=== PATIENT | male | born 1995 | race Two or more races ===

== ENCOUNTER 2023-07-22 21:37 | Emergency (ER) | payer BC, SELFPAY ==
[2023-07-22 21:42] VITALS: BP 138/88; PULSE 102; RESP 18; TEMP 37.7; O2SAT 98; BMI 30.8
--- NOTE | 2023-07-22 22:08 | ED.GENADUL1 ---
HPI - General Adult General Chief complaint: Abdominal Pain Stated complaint: Abdominal Pain Time Seen by Provider: 07/22/23 21:46 Source: patient Mode of arrival: walk-in History of Present Illness HPI narrative: this morning around 1030am the patient developed sharp stabbing pain along the LLQ that he rated 10/10. He said that he woke normally hours before and did not have any pain, nausea or other complaints. He said that he ate a peanut butter smoothie before going to work. While at work he developed the pain - some radiation into the left flank, currently rated 9/10. He denied any urinary symptoms. He admitted to frequent BMs with diarrhea. No fever or chills. he vomited. Despite the 10/10 pain he did not take anything OTC for the pain. Not clear why he waited almost 12 hours with constant severe pain to come to the ED. as I was leaving the exam room, he also complained to me that he had experienced a slight sore throat that began when he woke this morning. Related Data Previous Rx's Medication Instructions Recorded nabumetone 750 mg tablet 750 mg PO BID PRN pain #14 tabs 07/22/23 ondansetron 4 mg disintegrating 4 mg PO Q6H PRN nausea and 07/22/23 tablet vomiting #20 tabs Allergies Allergy/AdvReac Type Severity Reaction Status Date / Time No Known Drug Allergies Allergy Verified 07/22/23 21:42 Exam Narrative Exam Narrative: Nurses notes and vital signs reviewed and patient is not hypoxic. afebrile General: Well-appearing and in no apparent distress. Skin: Warm, dry, no pallor noted. No rash to abdomen or flank. Head: Normocephalic, atraumatic. Neck: Supple, non-tender. Eye: Pupils are equal, round and EOMI. No scleral icterus. Ears, Nose, Mouth, and Throat: Oral mucosa is moist, no posterior oropharynx erythema or exudate, uvula is mid-line Cardiovascular: Regular Rate and Rhythm without murmur, gallop or rub. Respiratory: No accessory muscle use or respiratory distress. Lungs are clear to auscultation, no wheezing, rales or rhonchi Back: No CVA tenderness Musculoskeletal: normal ROM GI: Abdomen is soft, non-distended. Normal bowel sounds. No masses appreciated. focal left lower quadrant tenderness to palpation. No rebound, guarding, or rigidity noted. Neurological: A&O x4. No cranial nerve dysfunction observed. No truncal ataxia. Moves all extremities. Sensation intact. Psychiatric: Cooperative and interactive. Normal mood and affect. Constitutional Vital Signs, click to edit/add: Last Vital Signs Temp 100 F 07/22/23 21:42 Pulse 102 H 07/22/23 21:42 Resp 18 07/22/23 21:42 BP 138/88 07/22/23 21:42 Pulse Ox 98 07/22/23 21:42 O2 Del Method Room Air 07/22/23 21:42 Course Vital Signs Vital signs: Vital Signs Temperature 100 F 07/22/23 21:42 Pulse Rate 102 H 07/22/23 21:42 Respiratory Rate 18 07/22/23 21:42 Blood Pressure 138/88 07/22/23 21:42 Pulse Oximetry 98 07/22/23 21:42 Oxygen Delivery Method Room Air 07/22/23 21:42 Temperature 100 F 07/22/23 21:42 Pulse Rate 102 H 07/22/23 21:42 Respiratory Rate 18 07/22/23 21:42 Blood Pressure 138/88 07/22/23 21:42 Pulse Oximetry 98 07/22/23 21:42 Oxygen Delivery Method Room Air 07/22/23 21:42 Medical Decision Making MDM Narrative Medical decision making narrative: peripheral IV established and blood drawn and sent for testing. urine was ordered to be obtained and sent for testing. Strep screen also sent. Patient was ordered to receive normal saline IV fluid, IV Toradol and IV Zofran. He was sent for CT scanning of the abdomen pelvis without contrast. WBC 12k, borderline left shift. CMP and lactate negative. Strep negative. UA with trace blood and trace protein and no sign of infection. CT = bilateral nonobstructing nephroliths without ureteral stones. Diverticulosis without diverticulitis - but study was done without contrast. WBC elevation could be reactive. CT did not reveal cause of the patient's symptoms On recheck his pain was markedly reduced and his nausea almost gone. He was informed of results, given reassurance and discharged home with prescriptions for Zofran and Relafen. He was instructed to maintain clear liquid diet until nausea subsides and advance diet as tolerated. ED return if he worsens. Lab Data Lab results reviewed: Yes I reviewed the patient's lab results Labs: Lab Results 07/22/23 Range/Units 22:15 WBC 12.1 H (4.0-11.0) 10^3/uL RBC 5.43 (4.70-6.10) 10^6/uL Hgb 15.6 (14.0-18.0) g/dL Hct 44.0 (42.0-54.0) % MCV 81.0 (80.0-94.0) fL MCH 28.7 (25.9-34.0) pg MCHC 35.5 H (29.9-35.2) g/dL RDW 11.7 (11.0-15.0) % Plt Count 187 (150-450) 10^3/uL MPV 10.0 (9.5-13.5) fL Neut % (Auto) 74.8 (43.0-75.0) % Lymph % (Auto) 12.3 L (20.5-60.0) % Brantley % (Auto) 12.2 H (1.7-12.0) % Eos % (Auto) 0.1 L (0.9-7.0) % Baso % (Auto) 0.2 (0.2-2.0) % Neut # (Auto) 9.1 H (1.4-6.5) 10^3/uL Lymph # (Auto) 1.5 (1.2-3.8) 10^3/uL Brantley # (Auto) 1.5 H (0.3-0.8) 10^3/uL Eos # (Auto) 0.0 (0.0-0.7) 10^3/uL Baso # (Auto) 0.0 (0.0-0.1) 10^3/uL Abs Immat Gran (auto) 0.05 H (0.00-0.03) 10^3/uL Imm/Tot Granulo (auto) 0.4 (0.0-0.5) % Sodium 137 (136-145) mmol/L Potassium 3.6 (3.5-5.1) mmol/L Chloride 100 (98-107) mmol/L Carbon Dioxide 27.9 (21.0-32.0) mmol/L Anion Gap 12.7 BUN 8.0 (7.0-18.0) mg/dL Creatinine 1.10 (0.70-1.30) mg/dL Est GFR ( Amer) >60 (>=60) Est GFR (Non-Af Amer) >60 (>=60) BUN/Creatinine Ratio 7.3 Glucose 99 (74-106) mg/dL Lactate 1.0 (0.4-2.0) mmol/L Calcium 9.1 (8.5-10.1) mg/dL Total Bilirubin 0.8 (0.2-1.0) mg/dL AST 19 (15-37) U/L ALT 30 (16-63) U/L Alkaline Phosphatase 60 (46-116) U/L Total Protein 7.8 (6.4-8.2) g/dL Albumin 4.3 (3.4-5.0) g/dL Globulin 3.5 g/dL Albumin/Globulin Ratio 1.2 Streptococcus Screen Negative Imaging Data CT scan - abdomen: Attestation: I have reviewed the pertinent imaging results. Radiologist's impression: Patient Name: MIGUEL ÁNGEL HARRISON MRN: [facility]:[id number] date: 1995 Sex: M Assigned Patient Location: ER Current Patient Location: ER Accession/Order Number: [id number] Exam Date: 07/22/2023 22:34 Report Date: 07/22/2023 22:55 At the request of: MARIETTA GILMORE Procedure: CT abdomen pelvis wo con EXAMINATION: CT Abdomen/Pelvis without contrast REPORT DATE: 07/22/2023 10:49 PM EDT INDICATION: Left lower quadrant abdominal pain COMPARISON(S): None. TECHNIQUE: Unenhanced axial CT through the abdomen and pelvis was performed. Coronal and sagittal reformats were provided. Individualized dose optimization techniques were used for this CT. FINDINGS: SUPPORT DEVICES: None. LOWER CHEST Normal. ABDOMEN/PELVIS Liver: Normal. Gallbladder/biliary: Normal gallbladder. No biliary ductal dilation. Pancreas: Normal. Spleen: Normal. Adrenal glands: Normal. Kidneys and ureters: Bilateral nonobstructing nephrolithiasis of the kidneys with largest stone seen on the left measuring 2 mm. The ureters are within normal limits. Bladder: Normal. Reproductive organs: Normal for age. Vessels: Normal. Stomach/bowel: Normal appearance of the gastroesophageal junction. The small bowel is normal caliber. The appendix is normal. Several colonic diverticula are noted without evidence of acute diverticulitis. Lymph nodes: No lymphadenopathy. Peritoneum: No intraperitoneal free air. No intraperitoneal free fluid. MUSCULOSKELETAL: Abdominal wall: Fat-containing periumbilical hernia with a fascial defect measuring 2.1 cm. Bones: No acute osseous abnormality. IMPRESSION: Bilateral nonobstructing nephrolithiasis. No obstructing stones are identified. Colonic diverticulosis without evidence of acute diverticulitis. Electronically authenticated by: OLLIE FERRER Date: 07/22/2023 22:55 Discharge Plan Discharge Chief Complaint: Abdominal Pain Clinical Impression: Nausea & vomiting, Abdominal pain Patient Disposition: Home, Self-Care Time of Disposition Decision: 23:12 Prescriptions / Home Meds: New ondansetron 4 mg tablet,disintegrating 4 mg PO Q6H PRN (Reason: nausea and vomiting) Qty: 20 0RF nabumetone 750 mg tablet 750 mg PO BID PRN (Reason: pain) Qty: 14 0RF Instructions: Acute Nausea and Vomiting (ED), Acute Abdominal Pain (ED) Stand Alone Forms: Portal Instructions Referrals: Physician,Non-Staff, MD [Primary Care Provider] - 1 week
[2023-07-22] MEDS: 0.9 % SODIUM CHLORIDE 1,000 ML 999 ML IV (22:20)
[2023-07-22] MEDS: KETOROLAC TROMETHAMINE 30 MG/ML VIAL IVP (22:20)
[2023-07-22] MEDS: ONDANSETRON PF 4 MG/2 ML VIAL IV (22:21)
[2023-07-22 22:26] LABS: Basophils Percent Auto 0.2 % (0.2-2.0); Eosinophils Percent Auto 0.1 % (0.9-7.0); Hemoglobin 15.6 g/dL (14.0-18.0); Immature Granulocytes Abs Auto 0.05 10^3/uL (0.00-0.03); Immature Granulocytes Pct Auto 0.4 % (0.0-0.5); Lymphocytes Absolute Auto 1.5 10^3/uL (1.2-3.8); Lymphocytes Percent Auto 12.3 % (20.5-60.0); Mean Corpuscular HGB Conc 35.5 g/dL (29.9-35.2); Mean Corpuscular Hemoglobin 28.7 pg (25.9-34.0); Monocytes Absolute Auto 1.5 10^3/uL (0.3-0.8); Monocytes Percent Auto 12.2 % (1.7-12.0); Neutrophils Absolute Auto 9.1 10^3/uL (1.4-6.5); Neutrophils Percent Auto 74.8 % (43.0-75.0); Platelet Count 187 10^3/uL (150-450); Red Blood Count 5.43 10^6/uL (4.70-6.10); Red Cell Distribution Width 11.7 % (11.0-15.0); White Blood Count 12.1 10^3/uL (4.0-11.0)
[2023-07-22 22:27] LABS: Bilirubin Urine NEGATIVE (NEGATIVE); Blood Urine TRACE-I (NEGATIVE); Clarity Urine CLEAR (CLEAR); Color Urine LT. YELLOW (YELLOW); Glucose Urine UA NEGATIVE (NEGATIVE); Ketones Urine NEGATIVE (NEGATIVE); Leukocyte Esterase Urine NEGATIVE (NEGATIVE); Nitrite Urine NEGATIVE (NEGATIVE); Protein Urine TRACE mg/dL (NEG/TRACE); Specific Gravity Urine 1.015 (1.005-1.025)
[2023-07-22 22:36] LABS: Internal Control Within Normal Limits; Strep A Antigen Screen Negative
[2023-07-22 22:40] LABS: Alanine Aminotransferase 30 U/L (16-63); Albumin Globulin Ratio 1.2; Albumin Level 4.3 g/dL (3.4-5.0); Alkaline Phosphatase 60 U/L (46-116); Anion Gap 12.7; Aspartate Amino Transferase 19 U/L (15-37); BUN Creatinine Ratio 7.3; Bilirubin Total 0.8 mg/dL (0.2-1.0); Calcium 9.1 mg/dL (8.5-10.1); Carbon Dioxide 27.9 mmol/L (21.0-32.0); Chloride 100 mmol/L (98-107); Estimated GFR (African America >60 (>=60); Estimated GFR (Non-African Ame >60 (>=60); Globulin 3.5 g/dL; Glucose 99 mg/dL (74-106); Potassium 3.6 mmol/L (3.5-5.1); Sodium 137 mmol/L (136-145); Total Protein 7.8 g/dL (6.4-8.2)
[2023-07-22 23:11] LABS: Urine Microscopic Indicated YES
[2023-07-22 23:12] LABS: Bacteria Urine TRACE #/HPF (NONE SEEN); Mucus Urine NONE SEEN (NONE SEEN); Squamous Epithelial Cell Urine FEW #/LPF (NONE/RARE); WBC Urine 0-2 #/HPF (NONE SEEN)
[2023-07-22 23:13] LABS: Cast Seen? NONE SEEN #/LPF (NONE SEEN); Crystals Seen? None Seen #/HPF (None Seen); Urine Culture Indicated NO
== END 2023-07-22 23:30 | disposition home or self-care (01) ==
PROVIDERS: Emergency Provider Emergency Medicine
DX: R10.9 Unspecified abdominal pain (principal); R11.2 Nausea with vomiting, unspecified; J02.9 Acute pharyngitis, unspecified
CPT/HCPCS: 36415; 74176; 80053; 81001; 83605; 85025; 87070; 87880; 96374; 96375; 99285